=== PATIENT | female | born 1960 | race Caucasian/White ===

== ENCOUNTER 2017-12-12 17:56 | Emergency (ER) | payer MEDICAID ==
[~2017-12-12] VITALS: Ht 177.8 cm; Wt 104.9 kg
[~2017-12-12 17:56] MED LIST: ALBU18HF2 INH; CARV25TA2 PO; DIGO250T77 PO; FURO40TA4 PO; LISI-222 PO; LOVENOX; METF10002 PO; POTA8TAB46 PO; WARF5TAB76 PO; WARF7.5T5 PO
[2017-12-12 19:45] LABS: BASOPHILS % (AUTO) 0.6 % (0-1); EOSINOPHILS # (AUTO) 0.2 X10'3 (0-0.9); EOSINOPHILS % (AUTO) 2.4 % (0-6); LYMPHOCYTES # (AUTO) 3.8 X10'3 (1.1-4.8); LYMPHOCYTES % (AUTO) 42.3 % (21-51); MEAN CORPUSCULAR HEMOGLOBIN 29.9 PG (27.0-31.0); MEAN CORPUSCULAR HGB CONC 33.3 % (33.0-36.5); MEAN CORPUSCULAR VOLUME 89.9 FL (78-98); MEAN PLATELET VOLUME 8.1 FL (7.4-10.4); MONOCYTES # (AUTO) 0.8 X10'3 (0-0.9); MONOCYTES % (AUTO) 8.6 % (2-12); NEUTROPHILS # (AUTO) 4.1 X10'3 (1.8-7.7); NEUTROPHILS % (AUTO) 46.1 % (42-75); PLATELET COUNT 247 X10'3 (140-440); RED BLOOD COUNT 4.34 X10'6 (4.20-5.60); RED CELL DISTRIBUTION WIDTH 14.3 % (11.5-14.5); WHITE BLOOD COUNT 8.9 X10'3 (4.5-11.0)
[2017-12-12 19:57] LABS: INR 1.6 INR; PROTHROMBIN TIME 16.4 SECONDS (9.0-12.0)
[2017-12-12 20:01] LABS: ALANINE AMINOTRANSFERASE 31 U/L (12-78); ALBUMIN 3.9 G/DL (3.4-5.0); ALBUMIN/GLOBULIN RATIO 1.2 (1.1-1.5); ALKALINE PHOSPHATASE 77 IU/L (46-116); ANION GAP 12 (8-16); ASPARTATE AMINO TRANSFERASE 18 U/L (10-37); BILIRUBIN,TOTAL 0.2 MG/DL (0.1-1.0); BLOOD UREA NITROGEN 21 MG/DL (7-18); BUN/CREATININE RATIO 18.6 (6.6-38.0); CALCIUM 9.1 MG/DL (8.5-10.1); CHLORIDE 104 MMOL/L (99-107); CREATININE 1.13 MG/DL (0.40-0.90); GLUCOSE 105 MG/DL (70-104); POTASSIUM 4.5 MMOL/L (3.5-5.1); SODIUM 141 MMOL/L (135-145); TOTAL CARBON DIOXIDE 25.3 MMOL/L (24-32); TOTAL PROTEIN 7.2 G/DL (6.4-8.2); eGFR 50 ML/MIN
[2017-12-12 23:44] LABS: LIPASE 183 U/L (73-393)
[2017-12-13] MEDS ORDERED: LIDOcaine Viscous 15ml cup PO ONE (00:15)
[2017-12-13] MEDS ORDERED: mag hydrox/Alum hydrox/simeth 30ml oral suspension PO ONE (00:15)
[2017-12-13] MEDS ORDERED: DICY10CA88 PO (00:43)
[2017-12-13] MEDS ORDERED: dicyclomine 10 MG capsule PO ONE (00:45)
[2017-12-13 00:56] VITALS: BP 122/70
[2017-12-16 12:32] LABS: OCCULT BLOOD STOOL NEGATIVE (Neg)
== END 2017-12-13 01:09 | disposition home or self-care (01) ==
LOC: ER 17:57
DX: K92.0 Hematemesis (principal); E11.9 Type 2 diabetes mellitus without complications; I48.91 Unspecified atrial fibrillation; I50.9 Heart failure, unspecified; Z88.1 Allergy status to other antibiotic agents; Z88.5 Allergy status to narcotic agent; Z88.2 Allergy status to sulfonamides; Z88.8 Allergy status to other drugs, medicaments and biological substances; Z91.018 Allergy to other foods; Z79.01 Long term (current) use of anticoagulants; Z79.84 Long term (current) use of oral hypoglycemic drugs; Z91.030 Bee allergy status
CPT/HCPCS: 36415; 71046; 80053; 82272; 83690; 85025; 85610; 99285

== ENCOUNTER 2017-12-31 10:48 | Inpatient (IN) | payer MEDICAID ==
[~2017-12-31] VITALS: Ht 177.8 cm; Wt 127.0 kg
[~2017-12-31 10:48] MED LIST changes: +DICY10CA88 PO; +WARF7.5T48 PO; -WARF7.5T5 PO
[2017-12-31] MEDS ORDERED: famotidine/PF 10 mg/ml inj IV ONE (11:15)
[2017-12-31] MEDS ORDERED: metoclopramide 5 mg/ml inj IV ONE (11:15)
[2017-12-31] MEDS ORDERED: pantoprazole 40 MG vial IV ONE (11:15)
[2017-12-31] MEDS ORDERED: normal saline 1000ML IV soln IVB ONE (11:15)
[2017-12-31] MEDS ORDERED: pantoprazole IV 80 MG in normal saline 100ml IV soln 100 ML IV ONE (11:20)
[2017-12-31 11:25] LABS: BASOPHILS % (AUTO) 0.4 % (0-1); EOSINOPHILS # (AUTO) 0.2 X10'3 (0-0.9); EOSINOPHILS % (AUTO) 1.8 % (0-6); HEMATOCRIT 36.9 % (35.0-45.0); HEMOGLOBIN 12.3 g/dl (12.0-16.0); LYMPHOCYTES # (AUTO) 2.6 X10'3 (1.1-4.8); LYMPHOCYTES % (AUTO) 30.2 % (21-51); MEAN CORPUSCULAR HEMOGLOBIN 30.1 PG (27.0-31.0); MEAN CORPUSCULAR HGB CONC 33.5 % (33.0-36.5); MEAN CORPUSCULAR VOLUME 89.9 FL (78-98); MEAN PLATELET VOLUME 8.2 FL (7.4-10.4); MONOCYTES # (AUTO) 0.6 X10'3 (0-0.9); MONOCYTES % (AUTO) 7.1 % (2-12); NEUTROPHILS # (AUTO) 5.2 X10'3 (1.8-7.7); NEUTROPHILS % (AUTO) 60.5 % (42-75); PLATELET COUNT 286 X10'3 (140-440); RED CELL DISTRIBUTION WIDTH 14.4 % (11.5-14.5); WHITE BLOOD COUNT 8.6 X10'3 (4.5-11.0)
[2017-12-31 11:34] LABS: INR 2.7 INR; PROTHROMBIN TIME 27.2 SECONDS (9.0-12.0)
[2017-12-31 11:48] LABS: ALANINE AMINOTRANSFERASE 28 U/L (12-78); ALBUMIN 3.8 G/DL (3.4-5.0); ALBUMIN/GLOBULIN RATIO 1.1 (1.1-1.5); ALKALINE PHOSPHATASE 67 IU/L (46-116); ANION GAP 9 (8-16); ASPARTATE AMINO TRANSFERASE 15 U/L (10-37); BILIRUBIN,TOTAL 0.3 MG/DL (0.1-1.0); BLOOD UREA NITROGEN 17 MG/DL (7-18); BUN/CREATININE RATIO 16.2 (6.6-38.0); CALCIUM 9.3 MG/DL (8.5-10.1); CHLORIDE 107 MMOL/L (99-107); CREATININE 1.05 MG/DL (0.40-0.90); GLUCOSE 117 MG/DL (70-104); LIPASE 171 U/L (73-393); POTASSIUM 4.2 MMOL/L (3.5-5.1); SODIUM 145 MMOL/L (135-145); TOTAL CARBON DIOXIDE 29.5 MMOL/L (24-32); TOTAL PROTEIN 7.2 G/DL (6.4-8.2); eGFR 54 ML/MIN
[2017-12-31] MEDS ORDERED: phytonadione inj. 10 MG in normal saline 100ml IV soln 99 ML IV ONE (12:25)
[2017-12-31] MEDS ORDERED: PHYTONADIONE IV ONE (12:40)
[2017-12-31] MEDS ORDERED: NORMAL SALINE IV ONE (12:40)
[2017-12-31 12:53] LABS: OCCULT BLOOD STOOL POSITIVE (Neg)
[2017-12-31 12:55] VITALS: BP 115/75
[2017-12-31 13:00] VITALS: BP 115/75
[2017-12-31] MEDS ORDERED: magnesium Cl slow-release 64mg tablet PO PRN (15:20)
[2017-12-31] MEDS ORDERED: potassium Cl 20 mEq SR tablet PO PRN ×2 (15:20)
[2017-12-31] MEDS ORDERED: potassium Cl 40MEQ/NS 500ml 500 ML IV PRN ×2 (15:20)
[2017-12-31] MEDS ORDERED: magnesium 4gm in 100ml NS 100 ML IV PRN (15:20)
[2017-12-31] MEDS ORDERED: magnesium 2GM in 50ml NS 50 ML IV PRN (15:20)
[2017-12-31] MEDS ORDERED: ondansetron/PF 4mg/2ml inj IV PRN (15:20)
[2017-12-31] MEDS ORDERED: mag hydrox/Alum hydrox/simeth 30ml oral suspension PO PRN (15:20)
[2017-12-31] MEDS ORDERED: albuterol 2.5 MG/3 ML nebule NEB PRN (15:45)
[2017-12-31] MEDS ORDERED: pantoprazole 40MG/NS 100ML BAG 100 ML IV ONE (16:00)
[2017-12-31] MEDS ORDERED: pantoprazole IV 80 MG in normal saline 100ml IV soln 100 ML IV SCH ×2 (16:00→17:00)
[2017-12-31 16:32] LABS: INR 1.9 INR; PROTHROMBIN TIME 19.4 SECONDS (9.0-12.0)
[2017-12-31] MEDS ORDERED: glucagon, human recombinant 1mg kit SUBCUT PRN (17:30)
[2017-12-31] MEDS ORDERED: insulin Lispro (HumaLOG) vial - multi-dose SQ SCH (17:30)
[2017-12-31] MEDS ORDERED: dextrose 50%-water 50ml dispensing syringe IV PRN ×2 (17:30)
[2017-12-31] MEDS ORDERED: MESSAGE TO PHARMACY PO ONE (17:30)
[2017-12-31] MEDS ORDERED: dextrose ORAL solution 15 GM/59 ML bottle PO PRN ×2 (17:30)
[2017-12-31 18:05] LABS: HEMOGLOBIN A1C 6.9 % (4.5-6.2)
[2017-12-31] MEDS: normal saline 1000ml 1,000 ML IV SCH (19:22)
[2017-12-31] MEDS: pantoprazole IV 80 MG in dextrose 5%-water 100 ML IV SCH (19:31)
[2017-12-31 19:43] LABS: BASOPHILS % (AUTO) 0.3 % (0-1); EOSINOPHILS # (AUTO) 0.1 X10'3 (0-0.9); HEMATOCRIT 35.7 % (35.0-45.0); HEMOGLOBIN 12.1 g/dl (12.0-16.0); LYMPHOCYTES # (AUTO) 2.6 X10'3 (1.1-4.8); LYMPHOCYTES % (AUTO) 30.3 % (21-51); MEAN CORPUSCULAR HEMOGLOBIN 30.3 PG (27.0-31.0); MEAN CORPUSCULAR HGB CONC 33.8 % (33.0-36.5); MEAN CORPUSCULAR VOLUME 89.7 FL (78-98); MEAN PLATELET VOLUME 8.2 FL (7.4-10.4); MONOCYTES # (AUTO) 0.5 X10'3 (0-0.9); MONOCYTES % (AUTO) 6.2 % (2-12); NEUTROPHILS # (AUTO) 5.3 X10'3 (1.8-7.7); NEUTROPHILS % (AUTO) 62.2 % (42-75); PLATELET COUNT 244 X10'3 (140-440); RED BLOOD COUNT 3.99 X10'6 (4.20-5.60); RED CELL DISTRIBUTION WIDTH 14.3 % (11.5-14.5); WHITE BLOOD COUNT 8.5 X10'3 (4.5-11.0)
[2017-12-31] MEDS: carVEDilol 12.5mg tablet PO SCH (20:00)
[2017-12-31] MEDS ORDERED: insulin glargine (Lantus) pen - multi-dose SQ SCH (21:00)
[2017-12-31] MEDS: dicyclomine 10 MG capsule PO SCH (21:02)
[2017-12-31 23:25] VITALS: BP 99/72
[2018-01-01 03:13] LABS: BASOPHILS % (AUTO) 0.2 % (0-1); EOSINOPHILS # (AUTO) 0.1 X10'3 (0-0.9); EOSINOPHILS % (AUTO) 1.4 % (0-6); HEMATOCRIT 33.6 % (35.0-45.0); HEMOGLOBIN 11.3 g/dl (12.0-16.0); LYMPHOCYTES # (AUTO) 2.3 X10'3 (1.1-4.8); LYMPHOCYTES % (AUTO) 31.9 % (21-51); MEAN CORPUSCULAR HEMOGLOBIN 29.9 PG (27.0-31.0); MEAN CORPUSCULAR HGB CONC 33.8 % (33.0-36.5); MEAN CORPUSCULAR VOLUME 88.5 FL (78-98); MONOCYTES # (AUTO) 0.5 X10'3 (0-0.9); NEUTROPHILS # (AUTO) 4.4 X10'3 (1.8-7.7); NEUTROPHILS % (AUTO) 59.5 % (42-75); PLATELET COUNT 211 X10'3 (140-440); RED BLOOD COUNT 3.79 X10'6 (4.20-5.60); RED CELL DISTRIBUTION WIDTH 14.3 % (11.5-14.5); WHITE BLOOD COUNT 7.4 X10'3 (4.5-11.0)
[2018-01-01 03:23] LABS: ALBUMIN 3.6 G/DL (3.4-5.0); ANION GAP 9 (8-16); BLOOD UREA NITROGEN 16 MG/DL (7-18); BUN/CREATININE RATIO 15.1 (6.6-38.0); CALCIUM 9.1 MG/DL (8.5-10.1); CHLORIDE 107 MMOL/L (99-107); CREATININE 1.06 MG/DL (0.40-0.90); GLUCOSE 95 MG/DL (70-104); MAGNESIUM 1.6 MG/DL (1.5-2.4); POTASSIUM 3.6 MMOL/L (3.5-5.1); SODIUM 144 MMOL/L (135-145); TOTAL CARBON DIOXIDE 28.5 MMOL/L (24-32); eGFR 54 ML/MIN
[2018-01-01] MEDS: pantoprazole IV 80 MG in dextrose 5%-water 100 ML IV SCH ×2 (04:15→13:24)
[2018-01-01] MEDS: carVEDilol 12.5mg tablet PO SCH (05:09)
[2018-01-01 07:11] VITALS: BP 105/73
[2018-01-01] MEDS ORDERED: furosemide 40mg tablet PO SCH (08:00)
[2018-01-01] MEDS ORDERED: K and/or MAG REPLACEMENT MC SCH (08:00)
[2018-01-01] MEDS ORDERED: digoxin 250mcg (0.25mg) tablet PO SCH (08:00)
[2018-01-01] MEDS ORDERED: lisinopril 5mg tablet PO SCH (08:00)
[2018-01-01] MEDS: dicyclomine 10 MG capsule PO SCH ×2 (09:48→12:32)
[2018-01-01 10:08] LABS: BASOPHILS % (AUTO) 0.2 % (0-1); EOSINOPHILS # (AUTO) 0.1 X10'3 (0-0.9); EOSINOPHILS % (AUTO) 1.9 % (0-6); HEMATOCRIT 35.6 % (35.0-45.0); HEMOGLOBIN 11.9 g/dl (12.0-16.0); LYMPHOCYTES # (AUTO) 2.4 X10'3 (1.1-4.8); LYMPHOCYTES % (AUTO) 31.3 % (21-51); MEAN CORPUSCULAR HGB CONC 33.5 % (33.0-36.5); MEAN CORPUSCULAR VOLUME 89.3 FL (78-98); MEAN PLATELET VOLUME 7.9 FL (7.4-10.4); MONOCYTES # (AUTO) 0.5 X10'3 (0-0.9); MONOCYTES % (AUTO) 6.9 % (2-12); NEUTROPHILS # (AUTO) 4.7 X10'3 (1.8-7.7); NEUTROPHILS % (AUTO) 59.7 % (42-75); PLATELET COUNT 241 X10'3 (140-440); RED BLOOD COUNT 3.99 X10'6 (4.20-5.60); RED CELL DISTRIBUTION WIDTH 14.3 % (11.5-14.5); WHITE BLOOD COUNT 7.8 X10'3 (4.5-11.0)
[2018-01-01 11:12] VITALS: BP 106/76
[2018-01-01] MEDS: normal saline 1000ml 1,000 ML IV SCH (11:56)
[2018-01-01] MEDS ORDERED: PANT-47 PO (12:59)
== END 2018-01-01 18:52 | disposition home or self-care (01) | DRG 241 ==
LOC: ER 10:48 → ED HOLD 13:17 → MED 3N 23:21
PROVIDERS: ADMIT Internal Medicine; ATTEND Internal Medicine
PROC: 30233K1 Transfusion of Nonautologous Frozen Plasma into Peripheral Vein, Percutaneous Approach (ICD-10-PCS; principal; 2017-12-31)
DX: K29.01 Acute gastritis with bleeding (principal); D68.32 Hemorrhagic disorder due to extrinsic circulating anticoagulants; I50.9 Heart failure, unspecified; I11.0 Hypertensive heart disease with heart failure; Z68.41 Body mass index [BMI] 40.0-44.9, adult; E11.9 Type 2 diabetes mellitus without complications; D64.9 Anemia, unspecified; I48.2 Chronic atrial fibrillation; Z79.01 Long term (current) use of anticoagulants; Z98.891 History of uterine scar from previous surgery; Z79.84 Long term (current) use of oral hypoglycemic drugs; Z79.4 Long term (current) use of insulin; Z88.6 Allergy status to analgesic agent; Z88.2 Allergy status to sulfonamides; Z88.1 Allergy status to other antibiotic agents; Z91.030 Bee allergy status; Z88.8 Allergy status to other drugs, medicaments and biological substances; Z91.018 Allergy to other foods
CPT/HCPCS: 36415; 80048; 80053; 80162; 82272; 82948; 83036; 83690; 83735; 85025; 85610; 86885; 86900; 86901; 87070; 94640; 94760; 96365; 96375; 99285; C9113; J1815; J2765; J3430; J3490; J7030; J7040; J7060; P9059

== ENCOUNTER 2022-10-02 15:16 | Emergency (ER) | payer MEDICAID ==
[~2022-10-02] VITALS: Ht 177.8 cm; Wt 112.8 kg
[~2022-10-02 15:16] MED LIST changes: +DIGO250T2 PO; -DIGO250T77 PO; -LOVENOX; +METF-438 PO; -METF10002 PO; +PANT-47 PO; -WARF5TAB76 PO; -WARF7.5T48 PO
[2022-10-02 16:00] LABS: BASOPHILS % (AUTO) 0.5 % (0-1); EOSINOPHILS % (AUTO) 0.5 % (0-6); HEMATOCRIT 36.1 % (35.0-45.0); HEMOGLOBIN 11.9 g/dl (12.0-16.0); LYMPHOCYTES # (AUTO) 2.8 X10'3 (1.1-4.8); LYMPHOCYTES % (AUTO) 31.3 % (21-51); MEAN CORPUSCULAR HEMOGLOBIN 28.4 PG (27.0-31.0); MEAN CORPUSCULAR VOLUME 86.1 FL (78-98); MEAN PLATELET VOLUME 7.8 FL (7.4-10.4); MONOCYTES # (AUTO) 0.8 X10'3 (0-0.9); MONOCYTES % (AUTO) 8.3 % (2-12); NEUTROPHILS # (AUTO) 5.4 X10'3 (1.8-7.7); NEUTROPHILS % (AUTO) 59.4 % (42-75); PLATELET COUNT 306 X10'3 (140-440); RED BLOOD COUNT 4.19 X10'6 (4.20-5.60)
[2022-10-02 16:17] LABS: ALANINE AMINOTRANSFERASE 14 U/L (12-78); ALBUMIN 4.2 G/DL (3.4-5.0); ALBUMIN/GLOBULIN RATIO 1.3 (1.1-1.5); ALKALINE PHOSPHATASE 88 IU/L (46-116); ANION GAP 10 (8-16); ASPARTATE AMINO TRANSFERASE 12 U/L (10-37); BILIRUBIN,TOTAL 0.5 MG/DL (0.1-1.0); BLOOD UREA NITROGEN 23 MG/DL (7-18); CALCIUM 9.7 MG/DL (8.5-10.1); CHLORIDE 103 MMOL/L (99-107); CREATININE 1.53 MG/DL (0.40-0.90); GLUCOSE 119 MG/DL (70-104); POTASSIUM 4.1 MMOL/L (3.5-5.1); SODIUM 137 MMOL/L (135-145); TOTAL CARBON DIOXIDE 23.8 MMOL/L (24-32); TOTAL PROTEIN 7.5 G/DL (6.4-8.2); eGFR 35 ML/MIN
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
[2022-10-03 01:52] LABS: CLARITY,URINE CLEAR (Clear); COLOR,URINE YELLOW (Yellow); GLUCOSE, URINE NEGATIVE (Neg); KETONES,URINE NEGATIVE (Neg); LEUKOCYTE ESTERASE ,URINE NEGATIVE (Neg); NITRITES, URINE NEGATIVE (Neg); OCCULT BLOOD,URINE NEGATIVE (Neg); PH,URINE 5.5 (4.8-8.0); PROTEIN,URINE NEGATIVE (Neg); UROBILINOGEN,URINE 0.2 E.U/dL (0.2-1.0)
[2022-10-03 02:04] LABS: UA COLLECTION TYPE CLN CATCH MIDSTREAM; URINE AMPHETAMINE SCREEN POSITIVE (Neg); URINE BARBITUATE SCREEN NEGATIVE (Neg); URINE BENZODIAZEPINES SCREEN NEGATIVE (Neg); URINE CANNABINOID SCREEN POSITIVE (Neg); URINE COCAINE SCREEN NEGATIVE (Neg); URINE METHADONE SCREEN NEGATIVE (Neg); URINE OPIATE SCREEN NEGATIVE (Neg); URINE PHENCYCLIDINE SCREEN NEGATIVE (Neg)
[2022-10-03] MEDS ORDERED: LORazepam 2 mg/ml vial IM ONE (05:25)
--- NOTE | 2022-10-03 05:34 | NUR ---
PTS BEHAVIOR ESCALATING WHILE LAYING IN BED IN HALLWAY. PT STATES SHE IS WORRIED "WE WILL ALL " AND EXPRESSES CONCERN FOR HER SON BEING HOME ALONE. PT WOULD NOT REORIENT AND CALM DOWN. DR. TORO NOTIFIED, ORDERS RECD.
--- NOTE | 2022-10-03 06:14 | NUR ---
PT REQUESTED TO CALL AND SPEAK WITH HER SON. AFTER THE CALL PT REPORTS FEELING BETTER AND IS IN THE GURNEY RESTING.
--- NOTE | 2022-10-03 06:30 | NUR ---
Assumed care of patient. Pt ambulated to OF bed #24 from main ED. Pt calm/cooperative.
[2022-10-03] MEDS ORDERED: METF-1203 PO (06:43)
[2022-10-03] MEDS ORDERED: PANT40TA54 PO (06:43)
[2022-10-03] MEDS ORDERED: ATOR40TA72 PO (06:43)
[2022-10-03] MEDS ORDERED: CARV25TA2 PO (06:43)
[2022-10-03] MEDS ORDERED: LISI5TAB22 PO (06:43)
[2022-10-03] MEDS ORDERED: ALBUTEROL (06:43)
[2022-10-03] MEDS ORDERED: APIX5TAB3 PO (06:43)
[2022-10-03] MEDS ORDERED: CHOL20002 PO (06:43)
[2022-10-03] MEDS ORDERED: albuterol 2.5 MG/3 ML nebule NEB PRN (07:50)
--- NOTE | 2022-10-03 07:58 | NUR ---
FAXED PACKET TO [facility].
[2022-10-03] MEDS ORDERED: lisinopril 5mg tablet PO SCH (08:00)
[2022-10-03] MEDS ORDERED: metFORMIN 500mg tablet PO SCH (08:00)
[2022-10-03] MEDS ORDERED: carVEDilol 12.5mg tablet PO SCH (08:00)
[2022-10-03] MEDS ORDERED: cholecalciferol (vitamin D3) 1,000 unit (25mcg) tablet PO SCH (08:00)
[2022-10-03] MEDS ORDERED: apixaban 5mg tablet PO SCH (08:00)
--- NOTE | 2022-10-03 08:35 | NUR ---
Pt awake on her bed, talking to herself saying "I don't care." Waiting for breakfast tray to come up from dietary.
--- NOTE | 2022-10-03 10:15 | NUR ---
[facility] clinician at bedside. Conversation appropriate.
--- NOTE | 2022-10-03 12:30 | NUR ---
Pt has been discharged. ETA for taxi about an hour and half. Pt calm.
--- NOTE | 2022-10-03 14:30 | NUR ---
Pt calmly sitting on bed, waiting for taxi to transport home.
--- NOTE | 2022-10-03 16:28 | NUR ---
DISCHARGE NOTE Patient was discharged from unit at 1440. Pt was A&Ox3. Pt left with all personal belongings. A taxi was provided for patient and she was taken home to address she provided. [address], [place].
[2022-10-03 16:30] VITALS: BP 121/75
[2022-10-03] MEDS ORDERED: atorvastatin 20mg tablet PO SCH (21:00)
[2022-10-03] MEDS ORDERED: pantoprazole 40mg Tablet.DR PO SCH (21:00)
== END 2022-10-03 14:40 | disposition home or self-care (01) ==
LOC: ER 15:17
DX: F22 Delusional disorders (principal); Z20.822 Contact with and (suspected) exposure to COVID-19; F15.90 Other stimulant use, unspecified, uncomplicated; I11.0 Hypertensive heart disease with heart failure; D64.9 Anemia, unspecified; E11.9 Type 2 diabetes mellitus without complications; Z88.5 Allergy status to narcotic agent; Z88.2 Allergy status to sulfonamides; Z88.1 Allergy status to other antibiotic agents; Z88.8 Allergy status to other drugs, medicaments and biological substances; Z79.899 Other long term (current) drug therapy
CPT/HCPCS: 36415; 70450; 80053; 80305; 81003; 84443; 85025; 87811; 93005; 96372; 99285; J2060

== ENCOUNTER 2024-01-13 21:24 | Emergency (ER) | payer MEDICAID ==
[~2024-01-13] VITALS: Ht 177.8 cm; Wt 118.2 kg
[~2024-01-13 21:24] MED LIST changes: +ALBUTEROL; +APIX5TAB3 PO; +ATOR40TA72 PO; +CHOL20002 PO; -DICY10CA88 PO; -DIGO250T2 PO; -FURO40TA4 PO; -LISI-222 PO; +LISI5TAB22 PO; +METF-1203 PO; -METF-438 PO; -PANT-47 PO; +PANT40TA54 PO; -POTA8TAB46 PO
[2024-01-13 23:04] LABS: BASOPHILS % (AUTO) 0.3 % (0-1); EOSINOPHILS # (AUTO) 0.1 X10'3 (0-0.9); EOSINOPHILS % (AUTO) 0.8 % (0-6); HEMATOCRIT 34.2 % (35.0-45.0); HEMOGLOBIN 10.8 g/dl (12.0-16.0); LYMPHOCYTES # (AUTO) 2.3 X10'3 (1.1-4.8); LYMPHOCYTES % (AUTO) 23.4 % (21-51); MEAN CORPUSCULAR HEMOGLOBIN 24.4 PG (27.0-31.0); MEAN CORPUSCULAR HGB CONC 31.6 g/dL (33.0-36.5); MEAN CORPUSCULAR VOLUME 77.3 FL (78-98); MEAN PLATELET VOLUME 7.6 FL (7.4-10.4); MONOCYTES # (AUTO) 0.8 X10'3 (0-0.9); MONOCYTES % (AUTO) 8.6 % (2-12); NEUTROPHILS # (AUTO) 6.5 X10'3 (1.8-7.7); NEUTROPHILS % (AUTO) 66.9 % (42-75); PLATELET COUNT 273 X10'3 (140-440); RED BLOOD COUNT 4.42 X10'6 (4.20-5.60); RED CELL DISTRIBUTION WIDTH 18.9 % (11.5-14.5); WHITE BLOOD COUNT 9.7 X10'3 (4.5-11.0)
[2024-01-13] MEDS: nitroGLYCERIN 0.4mg SUBLingual tab SL PRN (23:08)
[2024-01-13] MEDS: aspirin 325mg tablet PO ONE (23:08)
[2024-01-13 23:16] LABS: ALANINE AMINOTRANSFERASE 16 U/L (12-78); ALBUMIN 3.5 G/DL (3.4-5.0); ALBUMIN/GLOBULIN RATIO 0.9 (1.1-1.5); ALKALINE PHOSPHATASE 95 IU/L (46-116); ANION GAP 9 (8-16); ASPARTATE AMINO TRANSFERASE 11 U/L (10-37); BILIRUBIN,TOTAL 0.3 MG/DL (0.1-1.0); BLOOD UREA NITROGEN 26 MG/DL (7-18); CALCIUM 9.5 MG/DL (8.5-10.1); CHLORIDE 108 MMOL/L (99-107); CREATININE 1.18 MG/DL (0.40-0.90); GLUCOSE 92 MG/DL (70-104); POTASSIUM 5.3 MMOL/L (3.5-5.1); SODIUM 143 MMOL/L (135-145); TOTAL CARBON DIOXIDE 26.3 MMOL/L (24-32); TOTAL PROTEIN 7.3 G/DL (6.4-8.2); eCRCL 53 ML/MIN; eGFR 46 ML/MIN
[2024-01-13 23:25] LABS: PRO BRAIN NATRIURETIC PEPTIDE 1296 PG/ML (0-125)
[2024-01-14 00:14] LABS: ANISOCYTOSIS 2+; BURR CELLS FEW; ELLIPTOCYTES 1+; MICROCYTOSIS 1+; PLATELET ESTIMATE NORMAL
[2024-01-14 01:48] VITALS: BP 120/90; PULSE 72; RESP 18; TEMP 98.6; O2SAT 98
== END 2024-01-14 04:15 ==
LOC: ER 21:25
DX: R07.89 Other chest pain (principal); E87.5 Hyperkalemia; I50.9 Heart failure, unspecified; E11.9 Type 2 diabetes mellitus without complications; Z88.8 Allergy status to other drugs, medicaments and biological substances; Z88.2 Allergy status to sulfonamides; Z91.018 Allergy to other foods; Z88.1 Allergy status to other antibiotic agents; Z88.5 Allergy status to narcotic agent; Z91.041 Radiographic dye allergy status; Z79.899 Other long term (current) drug therapy; Z98.890 Other specified postprocedural states
CPT/HCPCS: 36415; 71045; 80053; 83880; 84484; 85008; 85025; 93005; 99285

== ENCOUNTER 2025-01-17 11:37 | Emergency (ER) | payer MEDICAID ==
[~2025-01-17] VITALS: Ht 177.8 cm; Wt 113.6 kg
[2025-01-17 11:41] VITALS: BP 126/73; PULSE 87; RESP 18; O2SAT 97
[2025-01-17] MEDS ORDERED: DOXY100C43 PO (12:16)
[2025-01-17 12:28] VITALS: TEMP 97.7
== END 2025-01-17 12:31 | disposition home or self-care (01) ==
LOC: ER 11:37
DX: L03.011 Cellulitis of right finger (principal); E11.9 Type 2 diabetes mellitus without complications; I48.91 Unspecified atrial fibrillation; I50.9 Heart failure, unspecified; D64.9 Anemia, unspecified; Z88.2 Allergy status to sulfonamides; Z88.1 Allergy status to other antibiotic agents; Z91.030 Bee allergy status; Z88.8 Allergy status to other drugs, medicaments and biological substances; Z79.899 Other long term (current) drug therapy; Z88.5 Allergy status to narcotic agent; Z79.84 Long term (current) use of oral hypoglycemic drugs; Z98.890 Other specified postprocedural states
CPT/HCPCS: 73130; 99283